=== PATIENT | female | born 1980 | race Caucasian/White ===

== ENCOUNTER 2016-12-11 07:17 | Observation (INO) | payer OTHER ==
[~2016-12-11] VITALS: Ht 157.5 cm; Wt 91.8 kg
[2016-12-11] MEDS ORDERED: TERBUTALINE 1 MG/ML, 1ML ONE (07:27)
[2016-12-11] MEDS ORDERED: TERBUTALINE 1 MG/ML, 1ML IV ONE (07:30)
[2016-12-11 07:41] LABS: HEMATOCRIT 38.5 % (34.6-47.8)
[2016-12-11] MEDS ORDERED: SODIUM CITRATE/CITRIC ACID 30 ML UDC ONE (07:48)
[2016-12-11] MEDS ORDERED: METOCLOPRAMIDE 5 MG/ML, 2ML ONE (07:48)
== END 2016-12-11 11:07 | disposition home or self-care (01) ==
LOC: LDOP 07:17 → LDIP 09:00
PROVIDERS: ADMIT Obstetrics & Gynecology Gynecology; ATTEND Obstetrics & Gynecology Gynecology
DX: O32.1XX0 Maternal care for breech presentation, not applicable or unspecified (principal); Z3A.37 37 weeks gestation of pregnancy
CPT/HCPCS: 36415; 59025; 59412; 76815; 85025; 86850; 86900; 96374; G0378; J3105

== ENCOUNTER 2016-12-31 10:36 | Inpatient (IN) | payer OTHER ==
[~2016-12-31] VITALS: Ht 160 cm; Wt 95.5 kg
[2016-12-31 11:25] LABS: HEMATOCRIT 38.2 % (34.6-47.8); HEMOGLOBIN 13.1 g/dL (11.7-16.4); WHITE BLOOD COUNT 11.5 x10^3/uL (3.4-10)
[2016-12-31 11:32] LABS: ASPARTATE AMINO TRANSFERASE 25 U/L (15-37); BLOOD UREA NITROGEN 12 mg/dL (7-18)
[2016-12-31 11:41] VITALS: BP 142/87
[2016-12-31] MEDS ORDERED: OXYTOCIN 30U/ 0.9% NaCL 500ML 500 ML IV ONE (12:50)
[2016-12-31] MEDS ORDERED: D5%-LACTATED RINGERS 1,000 ML IV SCH (12:50)
[2016-12-31] MEDS ORDERED: ONDANSETRON 2MG/ML, 2ML IVPush PRN (13:00)
[2016-12-31] MEDS ORDERED: SODIUM CHLORIDE FLUSH 10ML SYR IVF PRN (13:00)
[2016-12-31] MEDS ORDERED: FENTANYL PF 100 MCG/2ML IV PRN (13:00)
[2016-12-31] MEDS ORDERED: CALCIUM CARBONATE 500 MG TAB.CHEW PO PRN (13:00)
[2016-12-31] MEDS ORDERED: FENTANYL PF 100 MCG/2ML IVPush PRN (13:00)
[2016-12-31] MEDS ORDERED: OXYTOCIN 30U/ 0.9% NaCL 500ML 500 ML IV PRN (21:55)
[2016-12-31] MEDS ORDERED: OXYTOCIN 30U/ 0.9% NaCL 500ML 500 ML ONE (22:00)
[2016-12-31] MEDS ORDERED: METOCLOPRAMIDE 5 MG/ML, 2ML IVPush PRN (22:00)
[2016-12-31] MEDS ORDERED: MISOPROSTOL 200 MCG TABLET ONE (22:00)
[2016-12-31] MEDS ORDERED: TERBUTALINE 1 MG/ML, 1ML IVPush PRN (22:00)
[2016-12-31] MEDS ORDERED: LIDOCAINE 1%, 20ML ONE (22:00)
[2016-12-31] MEDS ORDERED: SODIUM CITRATE/CITRIC ACID 30 ML UDC PO PRN (22:00)
[2016-12-31] MEDS: LACTATED RINGERS 1,000 ML IV SCH (22:07)
[2017-01-01] MEDS: LACTATED RINGERS 1,000 ML IV SCH ×4 (02:35→20:51)
[2017-01-01] MEDS ORDERED: FENTANYL/BUPIV./NS/PF 250 ML EPIDCONT ONE (03:10)
[2017-01-01] MEDS ORDERED: LIDOCAINE/PF 1.5%-EPI 1:200K, 30ML ONE (03:10)
[2017-01-01] MEDS ORDERED: FENTANYL/BUPIV./NS/PF 250 ML EPIDCONT SCH (03:35)
[2017-01-01] MEDS ORDERED: EPHEDRINE 50 MG/ML, 1ML ONE (03:54)
[2017-01-01] MEDS ORDERED: LACTATED RINGERS 1,000 ML IVBOLUS PRN (04:00)
[2017-01-01] MEDS ORDERED: EPHEDRINE 50 MG/ML, 1ML IVPush PRN (04:30)
[2017-01-01] MEDS ORDERED: TERBUTALINE 1 MG/ML, 1ML ONE ×2 (04:31→08:30)
[2017-01-01] MEDS ORDERED: METOCLOPRAMIDE 5 MG/ML, 2ML ONE (06:17)
[2017-01-01] MEDS ORDERED: SODIUM CITRATE/CITRIC ACID 30 ML UDC ONE (06:17)
[2017-01-01] MEDS ORDERED: NEWBORN KIT ONE (08:49)
[2017-01-02] MEDS ORDERED: AZITHROMYCIN 500 MG in SODIUM CHLORIDE 0.9% 250 ML IV STA (00:34)
[2017-01-02] MEDS ORDERED: LIDOCAINE/MPF 2%-EPI 1:200K, 20 ML ONE (00:43)
[2017-01-02] MEDS ORDERED: EPHEDRINE 50 MG/ML, 1ML ONE (00:48)
[2017-01-02] MEDS ORDERED: LIDOCAINE-MPF 2% ,5ML ONE (00:48)
[2017-01-02] MEDS ORDERED: BUPIVACAINE/PF 0.25% ONE (00:48)
[2017-01-02] MEDS ORDERED: PHENYLEPHRINE 10 MG/ML ONE (00:48)
[2017-01-02] MEDS ORDERED: ROCURONIUM 10MG/ML,5ML ONE (00:48)
[2017-01-02] MEDS ORDERED: CEFAZOLIN 1,000 MG ONE (00:48)
[2017-01-02] MEDS ORDERED: PROPOFOL 10 MG/ML, 20ML ONE (00:48)
[2017-01-02] MEDS ORDERED: SUCCINYLCHOLINE 20 MG/ML, 10ML ONE (00:48)
[2017-01-02] MEDS ORDERED: WATER-INJECTION,STERILE 10 ML IV ONE (00:48)
[2017-01-02] MEDS ORDERED: GLYCOPYRROLATE 0.4 MG/2 ML, 2ML ONE (00:48)
[2017-01-02] MEDS ORDERED: OXYTOCIN 10 UNITS/ML, 1ML ONE (00:48)
[2017-01-02] MEDS ORDERED: morphine SULFATE/PF 1 MG/ML, 10ML ONE (00:49)
[2017-01-02] MEDS ORDERED: MEPERIDINE/PF 50 MG/ML ONE (01:31)
[2017-01-02] MEDS ORDERED: DIPHENHYDRAMINE 50 MG/ML, 1ML IVPush PRN (02:30)
[2017-01-02] MEDS ORDERED: HYDROmorphone/PF 10 MG/ML, 1ML IVPush PRN (02:30)
[2017-01-02] MEDS ORDERED: ONDANSETRON 2MG/ML, 2ML IVPush PRN (02:30)
[2017-01-02] MEDS ORDERED: KETOROLAC 30 MG/1 ML ONE (02:33)
[2017-01-02] MEDS: KETOROLAC 30 MG/1 ML IVPush PRN ×4 (02:35→20:55)
[2017-01-02] MEDS: OXYTOCIN 30U/ 0.9% NaCL 500ML 500 ML IV SCH ×3 (03:02→23:02)
[2017-01-02] MEDS: LACTATED RINGERS 1,000 ML IV SCH ×6 (03:02→23:02)
[2017-01-02] MEDS ORDERED: HYDROmorphone 1 MG/ML, 1ML ONE (03:07)
[2017-01-02] MEDS ORDERED: OXYcodone/APAP 5/325MG TABLET ONE (03:08)
[2017-01-02] MEDS: OXYcodone/APAP 5/325MG TABLET PO PRN ×3 (03:11→14:52)
[2017-01-02] MEDS ORDERED: ACETAMINOPHEN 325 MG TABLET PO PRN (03:30)
[2017-01-02] MEDS ORDERED: MISOPROSTOL 200 MCG TABLET PO PRN (03:30)
[2017-01-02] MEDS ORDERED: CARBOPROST TROMETHAMINE 250 MCG/ML, 1ML IM PRN (03:30)
[2017-01-02] MEDS ORDERED: OXYcodone/APAP 5/325MG TABLET PO PRN (03:30)
[2017-01-02 04:00] VITALS: BP 100/73
[2017-01-02 08:30] VITALS: BP 121/81
[2017-01-02] MEDS: PRENATAL VIT/IRON/FA 1 EACH TABLET PO SCH (08:38)
[2017-01-02] MEDS: DOCUSATE 100 MG CAPSULE PO PRN ×2 (08:38→19:30)
[2017-01-02 09:59] LABS: HEMATOCRIT 29.1 % (34.6-47.8); HEMOGLOBIN 10.1 g/dL (11.7-16.4)
[2017-01-02 10:26] LABS: DIFF TOTAL CELLS COUNTED 100 CELL DIFF
[2017-01-02 10:28] LABS: VERIFY COUNTS? YES
[2017-01-02 12:20] VITALS: BP 105/69
[2017-01-02 20:00] VITALS: BP 110/64
[2017-01-03] MEDS: LACTATED RINGERS 1,000 ML IV SCH ×5 (03:02→19:02)
[2017-01-03] MEDS: KETOROLAC 30 MG/1 ML IVPush PRN ×3 (04:13→16:10)
[2017-01-03] MEDS: OXYcodone/APAP 5/325MG TABLET PO PRN ×4 (07:10→22:37)
[2017-01-03 08:25] VITALS: BP 129/70
[2017-01-03] MEDS: PRENATAL VIT/IRON/FA 1 EACH TABLET PO SCH (08:30)
[2017-01-03] MEDS: DOCUSATE 100 MG CAPSULE PO PRN (08:31)
[2017-01-03] MEDS: OXYTOCIN 30U/ 0.9% NaCL 500ML 500 ML IV SCH ×2 (09:02→19:02)
[2017-01-03 20:00] VITALS: BP 121/78
[2017-01-04] MEDS: LACTATED RINGERS 1,000 ML IV SCH ×2 (03:02→05:02)
[2017-01-04 04:05] VITALS: BP 122/72
[2017-01-04] MEDS: OXYcodone/APAP 5/325MG TABLET PO PRN ×2 (04:26→09:44)
[2017-01-04] MEDS: OXYTOCIN 30U/ 0.9% NaCL 500ML 500 ML IV SCH (05:02)
[2017-01-04] MEDS ORDERED: OXYC-302 PO (07:03)
[2017-01-04] MEDS ORDERED: DOCU-131 PO (07:03)
[2017-01-04] MEDS ORDERED: IBUP-1222 PO (07:05)
[2017-01-04 07:30] VITALS: BP 146/89
[2017-01-04] MEDS: PRENATAL VIT/IRON/FA 1 EACH TABLET PO SCH (09:00)
[2017-01-05] MEDS ORDERED: FURO-93 PO (13:17)
== END 2017-01-04 10:55 | disposition home or self-care (01) | DRG 766 ==
LOC: LDOP 10:36 → LDIP 12:41 → 2NE 01-02 03:42 → 2NW 01-02 03:42
PROVIDERS: ADMIT Obstetrics & Gynecology Gynecology; ATTEND Obstetrics & Gynecology Gynecology
PROC: 10D00Z1 Extraction of Products of Conception, Low, Open Approach (ICD-10-PCS; principal; 2017-01-02)
DX: O13.4 Gestational [pregnancy-induced] hypertension without significant proteinuria, complicating childbirth (principal); O62.0 Primary inadequate contractions; O77.0 Labor and delivery complicated by meconium in amniotic fluid; O69.81X0 Labor and delivery complicated by cord around neck, without compression, not applicable or unspecified; O76 Abnormality in fetal heart rate and rhythm complicating labor and delivery; Z3A.40 40 weeks gestation of pregnancy; Z37.0 Single live birth
CPT/HCPCS: 36415; 80053; 81001; 82570; 82803; 84156; 84550; 85025; 86850; 86900; J0456; J0690; J1885; J2175; J2274; J2405; J2704; J3490; J0330; J2370; J2590; J2765; J3010; J7050; J7120; J7121

== ENCOUNTER 2017-01-05 02:44 | Observation (INO) | payer OTHER ==
[~2017-01-05] VITALS: Ht 160 cm; Wt 99.7 kg
[~2017-01-05 02:44] MED LIST: DOCU-131 PO; IBUP-1222 PO; OXYC-302 PO
[2017-01-05] MEDS ORDERED: SODIUM CHLORIDE FLUSH 10ML SYR IVF ONE (03:30)
[2017-01-05 03:49] LABS: PATH.CAST-FLAG NOT PRESENT; SPERM-FLAG NOT PRESENT; SRC-FLAG NOT PRESENT; XTAL-FLAG NOT PRESENT; YLC-FLAG NOT PRESENT
[2017-01-05 03:58] LABS: HEMATOCRIT 26.8 % (34.6-47.8); HEMOGLOBIN 9.3 g/dL (11.7-16.4); WHITE BLOOD COUNT 8.4 x10^3/uL (3.4-10)
[2017-01-05 03:59] LABS: ASPARTATE AMINO TRANSFERASE 69 U/L (15-37); BLOOD UREA NITROGEN 14 mg/dL (7-18)
[2017-01-05 04:06] LABS: IS PT STATUS REG ER OR PRE ER? YES
[2017-01-05] MEDS ORDERED: FUROSEMIDE 20 MG/2 ML IV ONE (05:00)
[2017-01-05] MEDS ORDERED: FUROSEMIDE 20 MG/2 ML ONE (05:08)
[2017-01-05 08:17] VITALS: BP 134/86
[2017-01-05] MEDS ORDERED: OXYcodone/APAP 5/325MG TABLET PO PRN (11:00)
[2017-01-05] MEDS ORDERED: IBUPROFEN 200 MG TABLET PO PRN (11:00)
[2017-01-05] MEDS ORDERED: FURO-93 PO (13:17)
[2017-01-05] MEDS ORDERED: DOCUSATE 100 MG CAPSULE PO SCH (21:00)
== END 2017-01-05 14:11 | disposition home or self-care (01) ==
LOC: ED 03:49 → EDIP 05:01 → INTOOBSV 05:01 → 5SO 08:12 → UNDODISIN 14:11
PROVIDERS: ADMIT Obstetrics & Gynecology; ATTEND Obstetrics & Gynecology
DX: O11.5 Pre-existing hypertension with pre-eclampsia, complicating the puerperium (principal); O99.53 Diseases of the respiratory system complicating the puerperium; R06.02 Shortness of breath
CPT/HCPCS: 36415; 71010; 80053; 81001; 83880; 84484; 85025; 87086; 93005; 93306; 96374; 99285; G0378; J1940

== ENCOUNTER 2017-01-08 10:57 | Inpatient (IN) | payer OTHER ==
[~2017-01-08] VITALS: Ht 160 cm; Wt 90.6 kg
[~2017-01-08 10:57] MED LIST changes: +FURO-93 PO
[2017-01-08] MEDS ORDERED: SODIUM CHLORIDE FLUSH 10ML SYR IVF ONE (12:00)
[2017-01-08 12:17] LABS: ASPARTATE AMINO TRANSFERASE 76 U/L (15-37); BLOOD UREA NITROGEN 13 mg/dL (7-18)
[2017-01-08 12:24] LABS: IS PT STATUS REG ER OR PRE ER? YES
[2017-01-08 12:32] LABS: HEMOGLOBIN 11.1 g/dL (11.7-16.4); WHITE BLOOD COUNT 10.8 x10^3/uL (3.4-10)
[2017-01-08] MEDS ORDERED: MAGNESIUM SULFATE PMX 4GM/100M 100 ML IVPB ONE ×2 (14:00→16:00)
[2017-01-08 15:40] VITALS: BP 147/91
[2017-01-08] MEDS ORDERED: LACTATED RINGERS 1,000 ML IV PRN (15:43)
[2017-01-08] MEDS ORDERED: MAGNESIUM SULF. PMX 20GM/500ML 500 ML IV ONE (16:32)
[2017-01-08 16:35] LABS: HEMATOCRIT 31.7 % (34.6-47.8); HEMOGLOBIN 10.8 g/dL (11.7-16.4); WHITE BLOOD COUNT 9.8 x10^3/uL (3.4-10)
[2017-01-08 16:45] LABS: ASPARTATE AMINO TRANSFERASE 68 U/L (15-37); BLOOD UREA NITROGEN 14 mg/dL (7-18)
[2017-01-08] MEDS: MAGNESIUM SULF. PMX 20GM/500ML 500 ML IV PRN (16:59)
[2017-01-08] MEDS ORDERED: ZOLPIDEM 5MG TABLET PO PRN (19:00)
[2017-01-08 19:13] VITALS: BP 149/89
[2017-01-09] MEDS ORDERED: OXYcodone/APAP 5/325MG TABLET ONE ×2 (01:02→11:36)
[2017-01-09] MEDS: OXYcodone/APAP 5/325MG TABLET PO PRN ×4 (01:06→23:50)
[2017-01-09] MEDS ORDERED: MAGNESIUM SULF. PMX 20GM/500ML 500 ML IV ONE (03:00)
[2017-01-09] MEDS: MAGNESIUM SULF. PMX 20GM/500ML 500 ML IV PRN (03:02)
[2017-01-09 04:48] LABS: HEMATOCRIT 33.8 % (34.6-47.8); HEMOGLOBIN 11.4 g/dL (11.7-16.4)
[2017-01-09 04:56] LABS: ASPARTATE AMINO TRANSFERASE 65 U/L (15-37); BLOOD UREA NITROGEN 10 mg/dL (7-18)
[2017-01-09] MEDS ORDERED: LABETALOL 200 MG TABLET ONE ×2 (05:00→14:42)
[2017-01-09] MEDS: LABETALOL 200 MG TABLET PO SCH ×4 (05:00→22:07)
[2017-01-09 09:20] VITALS: BP 132/93
[2017-01-09] MEDS ORDERED: ACETAMINOPHEN 325 MG TABLET ONE (17:28)
[2017-01-09] MEDS ORDERED: ACETAMINOPHEN 325 MG TABLET PO PRN (17:30)
[2017-01-09 19:40] VITALS: BP 126/81
[2017-01-09 23:52] VITALS: BP 137/88
[2017-01-10] MEDS: OXYcodone/APAP 5/325MG TABLET PO PRN (03:58)
[2017-01-10 04:00] VITALS: BP 143/93
[2017-01-10 05:58] LABS: BLOOD UREA NITROGEN 9 mg/dL (7-18)
[2017-01-10 06:00] LABS: ASPARTATE AMINO TRANSFERASE 29 U/L (15-37)
[2017-01-10] MEDS: LABETALOL 200 MG TABLET PO SCH (06:05)
[2017-01-10 06:17] LABS: HEMATOCRIT 31.5 % (34.6-47.8); HEMOGLOBIN 10.6 g/dL (11.7-16.4)
[2017-01-10 07:35] VITALS: BP 143/84
[2017-01-10] MEDS ORDERED: LABE200T3 PO (09:57)
[2017-01-10 10:08] VITALS: BP 128/82
== END 2017-01-10 11:15 | disposition home or self-care (01) | DRG 776 ==
LOC: ED 13:37 → EDIP 13:38 → ED 14:47 → 2NE 14:55 → 2NW 01-09 19:44
PROVIDERS: ADMIT Student in an Organized Health Care Education/Training Program; ATTEND Student in an Organized Health Care Education/Training Program
DX: O14.25 HELLP syndrome, complicating the puerperium (principal)
CPT/HCPCS: 36415; 71010; 80053; 81003; 83615; 83735; 83880; 84484; 85025; 93005; 93970; 99285; J3475; J7120